=== PATIENT | female | born 1965 | race Caucasian/White ===

== ENCOUNTER 2017-04-11 14:29 | Observation (INO) ==
--- NOTE | 2017-04-11 14:58 | Emergency Department Note ---
Disposition Clinical Impression: Transient cerebral ischemia Qualifiers: Transient cerebral ischemia type: unspecified Qualified Code(s): G45.9 - Transient cerebral ischemic attack, unspecified Disposition: Admitted As Inpatient Condition: Good Time of Disposition: 17:07 Neuro HPI - General Chief Complaint: ED Neuro Symptoms/Deficit Stated Complaint: Nuero symptoms Time Seen by Provider: 04/11/17 14:48 Source: patient, family Mode of arrival: EMS Limitations: no limitations Nursing Notes Reviewed: Yes Vital Signs Reviewed: Yes - History of Present Illness HPI Narrative: Patient presents to the ED if the chief complaint multiple mental status and expressive aphasia. Family reports that over the last several weeks. The patient has been having issues getting her words out. States that she takes muscle relaxers and at times will just drift off in the middle of sentences. States that today off and on. She has been having issues more so than usual to where she will be speaking and then start interjecting words that make no sense and have no place and her normal conversation. There is no weakness or slurred speech. Family states she is just acting strange. Patient reports that she knows what she wants to say but just oozing coming out correctly. He is been going on all day and is also been going on for last several weeks. No fever, headache, changes in vision, abdominal pain, nausea, vomiting, diarrhea, chest pain or shortness of breath. - Related Data Home Medications: Home Medications Medication Instructions Recorded Confirmed Cholecalciferol (D-3) [Vitamin D] 1,000 unit PO DAILY 03/13/17 04/11/17 Cyanocobalamin (B-12) [Vitamin B12] 1,000 mcg PO DAILY 03/13/17 04/11/17 DULoxetine [Cymbalta] 30 mg PO DAILY 03/13/17 04/11/17 Loratadine [Claritin] 10 mg PO DAILY 03/13/17 04/11/17 Multivit-Min/Iron/Folic/Lutein 1 each PO DAILY 03/13/17 04/11/17 [Centrum Silver Women Tablet] Omeprazole [PriLOSEC] 20 mg PO BIDAC 03/13/17 04/11/17 Pregabalin [Lyrica] 100 mg PO TID 03/13/17 04/11/17 Spironolactone [Aldactone] 50 mg PO DAILY 03/13/17 04/11/17 Tizanidine HCl [Zanaflex] 4 mg PO QID PRN 03/13/17 04/11/17 Metoprolol XL (24 HR) Succ [Toprol 50 mg PO DAILY 04/11/17 04/11/17 XL] Oxycodone HCl/Acetaminophen 1 each PO Q6H PRN 04/11/17 04/11/17 [Percocet 7.5-325 mg Tablet] Promethazine HCl 50 mg PO Q8H PRN 04/11/17 04/11/17 Trazodone HCl 150 mg PO HS 04/11/17 04/11/17 clonazePAM [Clonazepam] 1 mg PO QID PRN 04/11/17 04/11/17 Allergies/Adverse Reactions: Allergies Allergy/AdvReac Type Severity Reaction Status Date / Time nalbuphine [From Nubain] AdvReac Severe Anxiety Verified 03/13/17 13:58 guaifenesin [From Mucinex] AdvReac Headache Verified 03/13/17 13:58 All systems ED: reviewed and negative except as stated. Constitutional: Denies: fever Eyes: Denies: vision change Cardiovascular: Denies: chest pain Respiratory: Denies: dyspnea Gastrointestinal: Denies: abdominal pain, nausea, vomiting Musculoskeletal: Denies: neck pain Neurological: Reports: confusion. Denies: headache Endocrine: Reports: fatigue Past Medical History - Past Medical History Attestation: Yes The following information was validated with the patient. Source: patient Medical history: Reports: hypertension Psychiatric history: Reports: no psych history - Social History Smoking Status: Former smoker Smokeless Tobacco Status: No Alcohol use: Reports: none Drug use: Reports: none Physical Exam - General Limitations: no limitations General appearance: alert, in no apparent distress - Head Head exam: atraumatic, normocephalic, normal inspection - Eye Eye exam: Present: normal appearance, PERRL, EOMI - ENT ENT exam: normal exam, normal oropharynx, mucous membranes moist - Neck Neck exam: Present: normal inspection, full ROM, trachea midline - Chest Chest inspection: Present: normal inspection, symmetric chest wall rise - Respiratory Respiratory exam: Present: normal lung sounds bilaterally - Cardiovascular Cardiovascular exam: Present: regular rate, normal rhythm, normal heart sounds - Abdominal Exam Abdominal exam: Present: soft, Non-Tender, other (obese). Absent: tenderness, distention, guarding, rebound, rigidity - Extremities Exam Extremities exam: Present: normal inspection, full ROM. Absent: tenderness, pedal edema - Expanded Lower Extremity Exam Hip/Pelvis exam: Present: pelvis stable - Back Exam Back exam: Present: normal inspection, full ROM. Absent: tenderness - Neurological Exam Neurological exam: Present: alert, oriented X3, CN II-XII intact, normal gait - Expanded Neurological Exam Patient oriented to: Present: person, place, time Speech: Present: fluid speech (does slur some words) Cranial nerves: EOM function (II, III, IV, ): Normal, facial sensation (V): Normal, facial palsy (VII): Normal, spinal accessory function (XI): Normal, tongue deviation (XII): Normal Cerebellar function: finger to nose: Normal Cerebellar function: normal gait Motor strength - LUE: 5/5 Motor strength - RUE: 5/5 Motor strength - LLE: 5/5 Motor strength - RLE: 5/5 Upper motor neuron exam: yan neglect: Absent bilaterally, pronator drift: Absent bilaterally Sensory exam upper extremity: light touch: Normal Sensory exam lower extremity: light touch: Normal Coma Scale Eye Opening: Spontaneous Coma Scale Motor Response: Obeys Commands Coma Scale Verbal Response: Oriented Coma Scale Total: 15 - Psychiatric Psychiatric exam: Present: other (Odd Affect, seems to be over medicated) - Skin Skin exam: Present: warm, dry, intact, normal color Course Course Narrative: Patient presenting with difficulty with speech for the last several weeks, worse today. Patient does seem to be overmedicated. Stroke alert. Not called due to symptoms occurring over several weeks. Will workup and likely admit. - Consultations Consultation #1: spoke with the on-call neurologist, Dr. Massey, recommended admission for MRI. Patient aware and agreeable. NIH remains 0. Vital Signs Temperature 98.0 F 04/11/17 14:35 Pulse Rate 82 04/11/17 14:35 Respiratory Rate 16 04/11/17 14:35 Blood Pressure 145/90 04/11/17 14:35 O2 Sat by Pulse Oximetry 92 04/11/17 14:35 Temperature 98.0 F 04/11/17 14:35 Pulse Rate 84 04/11/17 16:34 Respiratory Rate 14 04/11/17 16:34 Blood Pressure 124/73 04/11/17 16:34 O2 Sat by Pulse Oximetry 91 04/11/17 16:34 Oxygen Delivery Oxygen Delivery Room Air Neuro Symptoms/Deficit - Medical Records Medical records reviewed: Yes I reviewed the patient's medical records. - Lab Data Lab results reviewed: Yes I reviewed the patient's lab results. Result diagrams: 04/11/17 15:31 04/11/17 15:31 Lab Results 04/11/17 04/11/17 04/11/17 Range/Units 14:32 15:17 15:17 WBC (4.3-11.1) K/mcL RBC (3.82-4.97) M/mcL Hgb (11.5-15.4) g/dL Hct (35.3-44.9) % MCV (83.0-100.0) fL MCH (28.0-33.3) pg MCHC (31.6-35.5) g/dL RDW (11.5-14.5) % Plt Count (140-400) K/mcL MPV (9.4-12.4) fL Immature Gran % (0-4) % Seg Neutrophils % % Lymphocytes % % Monocytes % % Eosinophils % % Basophils % % Neutrophils # (1.6-8.9) K/mcL Lymphocytes # (0.6-4.6) K/mcL Monocytes # (0.0-1.3) K/mcL Eosinophils # (0.0-0.6) K/mcL Basophils # (0.0-0.2) K/mcL Immature Plt Fraction (1.1-6.1) % PT (9.4-12.1) Seconds INR APTT (26.0-36.0) Seconds Sodium (136-145) mEq/L Potassium (3.5-4.5) mEq/L Chloride (98-109) mEq/L Carbon Dioxide (19-29) mEq/L BUN (7-20) mg/dL Creatinine (0.57-1.11) mg/dL Est GFR ( Amer) (> 60) Est GFR (Non-Af Amer) (> 60) BUN/Creatinine Ratio (6-26) Glucose (70-99) mg/dL POC Glucose 315 H (58-89) Calculated Osmolality (280-300) Calcium (8.6-10.8) mg/dL Troponin I (0-0.03) ng/mL Urine Color Yellow (Yellow) Urine Clarity Clear (Clear) Urine pH 6.0 (5.0-8.0) pH Units Ur Specific [place] 1.020 (1.010-1.025) Urine Protein Negative (Neg-Trace) mg/dL Urine Glucose (UA) >=1000 H (Normal) mg/dL Urine Ketones Negative (Negative) mg/dL Urine Blood Negative (Negative) Urine Nitrite Negative (Negative) Urine Bilirubin Negative (Negative) Urine Urobilinogen Normal (Normal) mg/dL Ur Leukocyte Esterase Negative (Negative) Ur Culture Indicated? NO (NO) Urine Opiates Screen Positive H (Xcenmm=913) ng/mL Ur Barbiturates Screen Negative (Wqxhxm=445) ng/mL Ur Phencyclidine Scrn Negative (Cutoff=25) ng/mL Ur Amphetamines Screen Negative (Nmjriz=6575) ng/mL U Benzodiazepines Scrn Negative (Gntkgm=086) ng/mL Urine Cocaine Screen Negative (Cutoff= 300) ng/mL U Marijuana (THC) Screen Negative (Cutoff = 50) ng/mL 04/11/17 04/11/17 04/11/17 Range/Units 15:31 15:31 15:31 WBC 3.6 L (4.3-11.1) K/mcL RBC 4.19 (3.82-4.97) M/mcL Hgb 10.0 L (11.5-15.4) g/dL Hct 33.4 L (35.3-44.9) % MCV 79.7 L (83.0-100.0) fL MCH 23.9 L (28.0-33.3) pg MCHC 29.9 L (31.6-35.5) g/dL RDW 18.3 H (11.5-14.5) % Plt Count 95 L (140-400) K/mcL MPV 9.4 (9.4-12.4) fL Immature Gran % 0.6 (0-4) % Seg Neutrophils % 35.9 % Lymphocytes % 51.1 % Monocytes % 11.3 % Eosinophils % 0.8 % Basophils % 0.3 % Neutrophils # 1.3 L (1.6-8.9) K/mcL Lymphocytes # 1.8 (0.6-4.6) K/mcL Monocytes # 0.4 (0.0-1.3) K/mcL Eosinophils # 0.0 (0.0-0.6) K/mcL Basophils # 0.0 (0.0-0.2) K/mcL Immature Plt Fraction 3.7 (1.1-6.1) % PT 11.4 (9.4-12.1) Seconds INR 1.1 APTT 37.3 H (26.0-36.0) Seconds Sodium 136 (136-145) mEq/L Potassium 4.1 (3.5-4.5) mEq/L Chloride 101 (98-109) mEq/L Carbon Dioxide 28 (19-29) mEq/L BUN 9 (7-20) mg/dL Creatinine 0.93 (0.57-1.11) mg/dL Est GFR ( Amer) > 60 (> 60) Est GFR (Non-Af Amer) > 60 (> 60) BUN/Creatinine Ratio 10 (6-26) Glucose 294 H (70-99) mg/dL POC Glucose (58-89) Calculated Osmolality 292 (280-300) Calcium 9.5 (8.6-10.8) mg/dL Troponin I (0-0.03) ng/mL Urine Color (Yellow) Urine Clarity (Clear) Urine pH (5.0-8.0) pH Units Ur Specific [place] (1.010-1.025) Urine Protein (Neg-Trace) mg/dL Urine Glucose (UA) (Normal) mg/dL Urine Ketones (Negative) mg/dL Urine Blood (Negative) Urine Nitrite (Negative) Urine Bilirubin (Negative) Urine Urobilinogen (Normal) mg/dL Ur Leukocyte Esterase (Negative) Ur Culture Indicated? (NO) Urine Opiates Screen (Zudvln=963) ng/mL Ur Barbiturates Screen (Cawxfw=486) ng/mL Ur Phencyclidine Scrn (Cutoff=25) ng/mL Ur Amphetamines Screen (Qxnuii=4641) ng/mL U Benzodiazepines Scrn (Shvdob=991) ng/mL Urine Cocaine Screen (Cutoff= 300) ng/mL U Marijuana (THC) Screen (Cutoff = 50) ng/mL 04/11/17 Range/Units 15:31 WBC (4.3-11.1) K/mcL RBC (3.82-4.97) M/mcL Hgb (11.5-15.4) g/dL Hct (35.3-44.9) % MCV (83.0-100.0) fL MCH (28.0-33.3) pg MCHC (31.6-35.5) g/dL RDW (11.5-14.5) % Plt Count (140-400) K/mcL MPV (9.4-12.4) fL Immature Gran % (0-4) % Seg Neutrophils % % Lymphocytes % % Monocytes % % Eosinophils % % Basophils % % Neutrophils # (1.6-8.9) K/mcL Lymphocytes # (0.6-4.6) K/mcL Monocytes # (0.0-1.3) K/mcL Eosinophils # (0.0-0.6) K/mcL Basophils # (0.0-0.2) K/mcL Immature Plt Fraction (1.1-6.1) % PT (9.4-12.1) Seconds INR APTT (26.0-36.0) Seconds Sodium (136-145) mEq/L Potassium (3.5-4.5) mEq/L Chloride (98-109) mEq/L Carbon Dioxide (19-29) mEq/L BUN (7-20) mg/dL Creatinine (0.57-1.11) mg/dL Est GFR ( Amer) (> 60) Est GFR (Non-Af Amer) (> 60) BUN/Creatinine Ratio (6-26) Glucose (70-99) mg/dL POC Glucose (58-89) Calculated Osmolality (280-300) Calcium (8.6-10.8) mg/dL Troponin I 0.00 (0-0.03) ng/mL Urine Color (Yellow) Urine Clarity (Clear) Urine pH (5.0-8.0) pH Units Ur Specific [place] (1.010-1.025) Urine Protein (Neg-Trace) mg/dL Urine Glucose (UA) (Normal) mg/dL Urine Ketones (Negative) mg/dL Urine Blood (Negative) Urine Nitrite (Negative) Urine Bilirubin (Negative) Urine Urobilinogen (Normal) mg/dL Ur Leukocyte Esterase (Negative) Ur Culture Indicated? (NO) Urine Opiates Screen (Kqnbhv=914) ng/mL Ur Barbiturates Screen (Exthbu=620) ng/mL Ur Phencyclidine Scrn (Cutoff=25) ng/mL Ur Amphetamines Screen (Parnwl=4731) ng/mL U Benzodiazepines Scrn (Dcrgvs=011) ng/mL Urine Cocaine Screen (Cutoff= 300) ng/mL U Marijuana (THC) Screen (Cutoff = 50) ng/mL - Radiology Data Radiology results reviewed: Yes I reviewed the patient's radiology results. - EKG Data EKG attestation: Yes I reviewed and interpreted this EKG. EKG results narrative: Sinus rhythm, rate 82, NH interval 157, QRS 94, QTC 399, left axis deviation, no acute ischemic changes NIH Stroke Scale - Level of Consciousness LOC: Alert - LOC Questions LOC Questions: Answers both correctly - LOC Commands LOC Commands: Performs both correctly - Best Gaze Best Gaze: Normal - Visual Visual: No visual loss - Facial Palsy Facial Palsy: Normal - Motor Arms Motor Arm-Left: No drift for 10 seconds Motor Arm-Right: No drift for 10 seconds - Motor Legs Motor Leg-Left: No drift for 5 seconds Motor Leg-Right: No drift for 5 seconds - Limb Ataxia Limb Ataxia: Normal, No Ataxia - Sensory Sensory: Normal - Best Language Best Language: No aphasia - Dysarthria Dysarthria: Normal - Extinction and Inattention Extinction and Inattention: Normal - NIHSS Total Score NIHSS Total Score: 0 TPA Checklist - LKW: 3-4.5 hrs Add. Warnings/Precautions Patient/family understanding: The patient/family members have been counseled and understood the risk, benefit , and alternatives of treatment. S.B.A.R. - S.B.A.RMorgan Situation: Demographics, MOA Background: Presenting Complaint, Relevant PMH, Meds, & Allergies Assessment: Vital Signs, Course and respsone to treatment, Exam Concerns, Patient/Family Expectation, Pertinant Lab Results, Outstanding Labs Recommendation: Barrier(s) to disposition, Recommendation based on pending studies, treatments, or consults S.B.A.R. Report Given to: vivek MartinezBMorganAKunal Repor Time: 17:10 Attestation Statement - Attestation Attestation: I examined this patient and my medical decision-making was reviewed with the Resident Physician. I agree with the documented findings, disposition and treatment plan as described except to the extent set forth below. Patient presents to the ED with a chief complaint of difficulty speaking and forming sentences. Onset 2 weeks ago but family states they got worse an hour ago. They did note that she taken 2 pain pills and a muscle relaxer earlier today. Patient denies any numbness or weakness. On examination patient awake alert and appropriate. She answers all questions appropriately. Her NIH scale here is 0. Plan. The patient seems to have altered mental status is been going on for couple weeks. Altered mental status workup.
[2017-04-11 15:26] LABS: Bilirubin,Urine Negative (Negative); Blood,Urine Negative (Negative); Clarity,Urine Clear (Clear); Color,Urine Yellow (Yellow); Glucose,Urine (UA) >=1000 mg/dL (Normal); Ketones,Urine Negative (Negative); Leukocyte Esterase,Urine Negative (Negative); Nitrite,Urine Negative (Negative); Protein,Urine Negative (Neg-Trace); Urobilinogen,Urine Normal (Normal)
[2017-04-11 15:41] LABS: Amphetamine Screen,Urine Negative ng/mL (Cutoff=1000); Barbiturate Screen,Urine Negative ng/mL (Cutoff=200); Benzodiazepines Screen,Urine Negative ng/mL (Cutoff=200); Cannabinoid Screen,Urine Negative ng/mL (Cutoff = 50); Cocaine Screen,Urine Negative ng/mL (Cutoff= 300); Opiate Screen,Urine Positive ng/mL (Cutoff=300); Phencyclidine Screen,Urine Negative ng/mL (Cutoff=25)
[2017-04-11 15:46] LABS: Basophils % 0.3 %; Monocytes % 11.3 %
[2017-04-11 15:48] LABS: Eosinophils % 0.8 %; Hematocrit 33.4 % (35.3-44.9); Immature Granulocytes % 0.6 % (0-4); Immature Platelets 3.7 % (1.1-6.1); Lymphocytes % 51.1 %; Mean Corpuscular HGB Conc 29.9 g/dL (31.6-35.5); Mean Corpuscular Hemoglobin 23.9 pg (28.0-33.3); Mean Corpuscular Volume 79.7 fL (83.0-100.0); Mean Platelet Volume 9.4 fL (9.4-12.4); Monocytes # 0.4 K/mcL (0.0-1.3); Neutrophils # 1.3 K/mcL (1.6-8.9); Platelet Count 95 K/mcL (140-400); Red Blood Count 4.19 M/mcL (3.82-4.97); Red Cell Distribution Width 18.3 % (11.5-14.5); Segmented Neutrophils % 35.9 %
[2017-04-11 15:50] LABS: INR 1.1; Prothrombin Time 11.4 Seconds (9.4-12.1)
[2017-04-11 15:52] LABS: Activated Partial Thrombo Time 37.3 Seconds (26.0-36.0); Lymphocytes # 1.8 K/mcL (0.6-4.6)
[2017-04-11] MEDS ORDERED: Aspirin 325 MG TABLET PO ONE (15:56)
[2017-04-11 15:58] LABS: BUN/Creatinine Ratio 10 (6-26); Blood Urea Nitrogen 9 mg/dL (7-20); Calcium 9.5 mg/dL (8.6-10.8); Carbon Dioxide 28 mEq/L (19-29); Chloride 101 mEq/L (98-109); Glucose 294 mg/dL (70-99); Osmolality,Calculated 292 (280-300); Potassium 4.1 mEq/L (3.5-4.5); Sodium 136 mEq/L (136-145); eGFR For African Americans > 60 (> 60); eGFR For Non-African Americans > 60 (> 60)
--- NOTE | 2017-04-11 19:25 | Internal Med History&Physical ---
Date of Encounter: 04/11/17 Time of Encounter: 19:25 Assessment and Plan (1) Neurologic disorder Current visit: Yes Status: Acute Patient comes in with a three-week history of poor sleep, snoring, confusion in the morning, lethargy throughout the day, word finding difficulties, she has symptoms suggestive of a sleep disorder likely related to a combination of restless leg syndrome and obstructive sleep apnea, MRI of the brain was unremarkable for an infarct, this is unlikely to be related to TIA due to the long duration, she will benefit from an outpatient sleep study, meanwhile neurology has been consulted to weigh in (2) HTN (hypertension) Current visit: Yes Status: Chronic Continue home antihypertensives with BP monitoring Qualifiers: Hypertension type: essential hypertension Qualified Code(s): I10 - Essential (primary) hypertension (3) JANEY (obstructive sleep apnea) Current visit: Yes Status: Chronic Suspected based on her symptoms, will need out patient sleep study Internal Medicine - H&P: HPI Chief complaint: AMS Admitted From: Emergency Dept Plans for Post Hospital Care: Home History of present illness: Ms. Ann is a 51 year old morbidly obese female who was brought in by family today with complaints of word finding difficulty, intermittent confusion. Patient reports that she was last well and at her baseline about 3 weeks ago. Since then she has had intermittent periods of confusion, word finding difficulty, interjecting inappropriate words during communication, and at times losing her train of thought mid sentence when communicating with people. She denies any prior history of this complaint, no family history of seizures noted. at bedside reports that patient does not sleep well at night with episodes of snoring, turning in bed and restless leg at night. Patient herself reports that she wakes up in the morning slightly confused, with a sense of unrefreshing sleep, and goes about her day with slow mentation. Although she has never had naps in the past she has realized that in the past 3 weeks she has been napping most of the time during the day. She denies any prior diagnosis of sleep apnea or sleep disorder. She has not experienced any narcolepsy episodes, no urinary or bowel incontinence. She denies any recent headaches but admits to migraine headache history, she has not noticed any paresthesias, loss of function, facial weakness, or any difficulty with ambulation. No prior stroke to her knowledge. Upon presentation to the ER of [facility], she had no neuro deficits on exam, MRI of the brain was unremarkable for an infarct. Past medical history hypercholesterolemia anemia hypertension fibromyalgia stomach ulcers anxiety morbid obesity bilateral knee arthritis lumbar degenerative disc disease left hip osteoarthritis acute pharyngitis migraine headaches rheumatoid arthritis chronic lymphadenitis Past surgical history sectionx2 tonsillectomy cholecystectomy gastric bypass total hysterectomy ganglion cyst removal on the left wrist kidney stones with stent placement trigger thumb release skin excision left ulnar nerve release carpal tunnel release Social history she reports that she is and never smoker, she is , has 2 kids, denies alcohol use or drug use, 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 Family history Father is , he had esophageal cancer, hypertension, skin cancer, mother has Parkinson's dementia, skin cancer, Past Med Surg Social Fam HX - Past Medical History Medical history: hypertension Psychiatric history: no psych history - Social History Smoking Status: Former smoker Smokeless Tobacco Status: No Alcohol use: none Drug use: none - Family History Father Adopted: [place]: [place] Family Member Ethnicity: Non- Living Status: Age at : 50 Cause of : ESPHAGEAL CANCER Hx Family Cardiac Disorders: Yes (HTN) Hx Family Respiratory Disorders: No Hx Family Cancer: Yes Hx Family GI Disorders: No Hx Family Genitourinary Disorders: No Hx Family Endocrine Disorder: No Hx Family Musculoskeletal Disorders: No Hx Family Neuromuscular Disorders: No Hx Family Neurologic Disorders: No Hx Family HEENT Disorders: No Hx Family Autoimmune Disorders: No Hx Family Reproductive Disorders: No Hx Family Psychosocial Disorders: No Hx Family Medical Disorders: No Internal Medicine - H&P: Meds Cholecalciferol (D-3) [Vitamin D] 1,000 unit PO DAILY 03/13/17 [History] Cyanocobalamin (B-12) [Vitamin B12] 1,000 mcg PO DAILY 03/13/17 [History] DULoxetine [Cymbalta] 30 mg PO DAILY 03/13/17 [History] Loratadine [Claritin] 10 mg PO DAILY 03/13/17 [History] Multivit-Min/Iron/Folic/Lutein [Centrum Silver Women Tablet] 1 each PO DAILY [History] Omeprazole [PriLOSEC] 20 mg PO BIDAC 03/13/17 [History] Pregabalin [Lyrica] 100 mg PO TID 03/13/17 [History] Spironolactone [Aldactone] 50 mg PO DAILY 03/13/17 [History] Tizanidine HCl [Zanaflex] 4 mg PO QID PRN 03/13/17 [History] Metoprolol XL (24 HR) Succ [Toprol XL] 50 mg PO DAILY 04/11/17 [History] Oxycodone HCl/Acetaminophen [Percocet 7.5-325 mg Tablet] 1 each PO Q6H PRN 04/11 [History] Promethazine HCl 50 mg PO Q8H PRN 04/11/17 [History] Trazodone HCl 150 mg PO HS 04/11/17 [History] clonazePAM [Clonazepam] 1 mg PO QID PRN 04/11/17 [History] 3 Allergy/AdvReac Type Severity Reaction Status Date / Time nalbuphine [From Nubain] AdvReac Severe Anxiety Verified 03/13/17 13:58 guaifenesin [From Mucinex] AdvReac Headache Verified 03/13/17 13:58 All Systems PM: A 10-system review of systems was performed and is negative for pertinent findings except as documented above in the HPI. - Constitutional Vitals: Temp Pulse Resp BP Pulse Ox 98.0 F 79 16 116/77 93 04/11/17 19:17 04/11/17 19:17 04/11/17 19:17 04/11/17 19:17 04/11/17 19:17 GENERAL: Adult female, appears morbidly obese, lying in bed, Alert, not in obvious pain or distress HEENT: NC/AT, EOMI, PERRLA, anicteric sclera, normal conjunctiva, thick short neck, clear nares, moist mucous membranes, RESP: Lungs are clear to auscultation bilaterally, with good AE, no crackles or wheeze CARDIO: Normal heart sounds with RRR, no murmurs, no JVD, no ankle edema GI: Soft, full, no tenderness, no organomegaly felt, normal bowel sounds heard MUSCULOSKELETAL: Grossly normal movements bilaterally, no deformities noted, NEUROLOGIC: CN 2-12 intact grossly. No gross motor/sensory deficit appreciated, PSYCHIATRY: AAO x 3. Mood is fair SKIN: no skin rash or ulcers noted Internal Med - H&P Results - Labs CBC & Chem 7: 04/11/17 15:31 04/12/17 05:20 - Diagnostic Studies MRI - head Status: image reviewed by me Chest x-ray Status: image reviewed by me
[2017-04-11] MEDS ORDERED: Naloxone 0.4 MG/ML INJ IVP PRN (20:03)
[2017-04-11] MEDS ORDERED: tiZANidine 4 MG TABLET PO PRN (20:05)
[2017-04-11] MEDS ORDERED: clonazePAM 1 MG TABLET PO PRN (20:05)
[2017-04-11] MEDS ORDERED: Pregabalin 50 MG CAPSULE PO SCH (21:00)
[2017-04-11] MEDS ORDERED: traZODone 50 MG TABLET PO SCH (21:00)
[2017-04-11] MEDS: Ondansetron 4 MG/2 ML VIAL IVP PRN (21:47)
[2017-04-11] MEDS: *HR* OxyCODONE/APAP 7.5/325 TABLET PO PRN (21:47)
[2017-04-12 05:47] LABS: BUN/Creatinine Ratio 14 (6-26); Blood Urea Nitrogen 11 mg/dL (7-20); Calcium 8.9 mg/dL (8.6-10.8); Carbon Dioxide 31 mEq/L (19-29); Chloride 101 mEq/L (98-109); Glucose 305 mg/dL (70-99); Magnesium 1.6 mg/dL (1.6-2.6); Osmolality,Calculated 295 (280-300); Potassium 4.1 mEq/L (3.5-4.5); Sodium 137 mEq/L (136-145); eGFR For African Americans > 60 (> 60); eGFR For Non-African Americans > 60 (> 60)
[2017-04-12] MEDS: *HR* OxyCODONE/APAP 7.5/325 TABLET PO PRN ×2 (05:51→12:05)
[2017-04-12] MEDS ORDERED: *HR* Heparin 5,000 UNIT/ML VIAL SQ SCH (06:45)
[2017-04-12] MEDS ORDERED: Multivit/Ca/Min/Fe/FA 1 TAB TABLET PO SCH (09:00)
[2017-04-12] MEDS ORDERED: Cholecalciferol (D-3) 1,000 UNIT TABLET PO SCH (09:00)
[2017-04-12] MEDS ORDERED: Metoprolol XL (24 HR) Succ 50 MG TAB.ER.24H PO SCH (09:00)
[2017-04-12] MEDS ORDERED: Pregabalin 50 MG CAPSULE PO SCH (09:00)
[2017-04-12] MEDS ORDERED: Loratadine 10 MG TABLET PO SCH (09:00)
[2017-04-12] MEDS ORDERED: Cyanocobalamin (B-12) 1,000 MCG TABLET PO SCH (09:00)
[2017-04-12 11:41] VITALS: BP 109/74
[2017-04-12] MEDS: Ondansetron 4 MG/2 ML VIAL IVP PRN (12:02)
--- NOTE | 2017-04-12 12:37 | Neurology - Consult Note ---
Date of Encounter: 04/12/17 Time of Encounter: 10:34 Assessment and Plan (1) Episodic confusion Current Visit: Yes Status: Acute This patient who denies any history of stroke or any history of seizures noted to have these episodic confusion and some intermittent difficulty with word finding the negative MRI of the brain and normal neurological examination. At this time no focal findings on her examination certainly TIA is a possibility but the description does not sound like a typical TIA. She is on baby aspirin suggested to continue. Other possible etiologies episodic spells could be complex partial seizures or perhaps simple partial seizures that may be causing these unusual symptoms. As she is back to normal routine EEG probably not going to be helpful as her symptoms are going on for the past few weeks and having it frequently to be reasonable to see look for any interictal abnormalities on an ambulatory EEG. She would probably benefit from 48 hours ambulatory EEG as an outpatient as she is already known to our practice suggested to follow-up after the discharge and will arrange for admitted to EEG. No evidence of any acute stroke on MRI of the brain suggested that he check for any underlying metabolic and infectious etiology to make sure there is no infection or metabolic disturbance causing her these episodic confusion. If patient's remained stable she could be discharged with follow-up in the office (2) Word finding difficulty Current Visit: Yes Status: Acute History of Present Illness HPI: Ms. Ann is a 51 year old female knows to be from previous visits, was brought in by family today with complaints of word finding difficulty, and intermittent confusion for the past 3 weeks ago. Since then she has had intermittent periods of confusion, word finding difficulty, interjecting inappropriate words during communication, and at times losing her train of thought mid sentence. pt not sleeping well and has episodes of snoring, turning in bed and restless leg at night. She denies any recent headaches but admits to migraine headache history, she denies any focal motor weakness or any paresthesias, she had no neuro deficits on exam today had MRI of brain earlier and noted to be normal. Past Med Surg Social Fam HX - Past Medical History Medical history: hypertension Psychiatric history: no psych history - Past Surgical History Surgical History: cholecystectomy, hysterectomy - Social History Smoking Status: Former smoker Smokeless Tobacco Status: No Alcohol use: none Drug use: none - Family History Father Adopted: [place]: [place] Family Member Ethnicity: Non- Living Status: Age at : 49 Cause of : ESPHAGEAL CANCER Hx Family Cardiac Disorders: Yes (HTN) Hx Family Respiratory Disorders: No Hx Family Cancer: Yes Hx Family GI Disorders: No Hx Family Genitourinary Disorders: No Hx Family Endocrine Disorder: No Hx Family Musculoskeletal Disorders: No Hx Family Neuromuscular Disorders: No Hx Family Neurologic Disorders: No Hx Family HEENT Disorders: No Hx Family Autoimmune Disorders: No Hx Family Reproductive Disorders: No Hx Family Psychosocial Disorders: No Hx Family Medical Disorders: No Medications and Allergies Cholecalciferol (D-3) [Vitamin D] 1,000 unit PO DAILY 03/13/17 [History] Cyanocobalamin (B-12) [Vitamin B12] 1,000 mcg PO DAILY 03/13/17 [History] DULoxetine [Cymbalta] 30 mg PO DAILY 03/13/17 [History] Loratadine [Claritin] 10 mg PO DAILY 03/13/17 [History] Multivit-Min/Iron/Folic/Lutein [Centrum Silver Women Tablet] 1 each PO DAILY [History] Omeprazole [PriLOSEC] 20 mg PO BIDAC 03/13/17 [History] Pregabalin [Lyrica] 100 mg PO TID 03/13/17 [History] Spironolactone [Aldactone] 50 mg PO DAILY 03/13/17 [History] Tizanidine HCl [Zanaflex] 4 mg PO QID PRN 03/13/17 [History] Metoprolol XL (24 HR) Succ [Toprol XL] 50 mg PO DAILY 04/11/17 [History] Oxycodone HCl/Acetaminophen [Percocet 7.5-325 mg Tablet] 1 each PO Q6H PRN 04/11 [History] Promethazine HCl 50 mg PO Q8H PRN 04/11/17 [History] Trazodone HCl 150 mg PO HS 04/11/17 [History] clonazePAM [Clonazepam] 1 mg PO QID PRN 04/11/17 [History] 3 Allergy/AdvReac Type Severity Reaction Status Date / Time nalbuphine [From Nubain] AdvReac Severe Anxiety Verified 03/13/17 13:58 guaifenesin [From Mucinex] AdvReac Headache Verified 03/13/17 13:58 All Systems: A 10-system review of systems was performed and is negative for pertinent findings except as documented above in the HPI. Physical Examination - Vital Signs Vital Signs: Initial Vital Signs Temp Pulse Resp BP Pulse Ox 98.0 F 82 16 145/90 92 04/11/17 14:35 04/11/17 14:35 04/11/17 14:35 04/11/17 14:35 04/11/17 14:35 - Constitutional General appearance: comfortable - Neurologic Detailed motor examination: full strength in all major muscle groups Motor examination - right side: 5/5: deltoids, biceps, triceps, wrist flexion, wrist extension, website project manager, hip flexors, tibialis Anterior, quadriceps, toe extension (EHL), plantarflexion Motor examination - left side: 5/5: deltoids, biceps, triceps, wrist flexion, wrist extension, hip flexors, website project manager, quadriceps, tibialis Anterior, toe extension (EHL), plantarflexion Detailed sensory examination: intact Reflexes: Biceps: 1+, Triceps: 1+, Brachioradialis: 1+, Patella: 1+, Achilles: 1 + Mental Status Examination: awake, alert, oriented to person, oriented to place, oriented to time, follows commands appropriately, answers questions appropriately, no agnosia, no aphasia, no aproxia Cranial nerve examination: PERRL, EOMI, visual thapa intact, corneal reflexes brisk symmetrically, sensory to face intact, mastication intact, no facial asymmetry is present, no dysarthria, hearing is intact symmetrically, soft palate elevates bilaterally upon phonation, gag reflex intact, flexes SCM and trapezius muscles symmetrically with full power, tongue protrudes midline, no atrophy or facial fasiculations present Cerebellar examination: no dysmetria, performs finger to nose and heel to sawyer symmetrically without ataxia, no difficulty with rapid alternating movements Results - Laboratory Findings CBC and BMP: 04/11/17 15:31 04/12/17 05:20 Abnormal lab findings: Abnormal lab results WBC 3.6 K/mcL (4.3-11.1) L 04/11/17 15:31 Hgb 10.0 g/dL (11.5-15.4) L 04/11/17 15:31 Hct 33.4 % (35.3-44.9) L 04/11/17 15:31 MCV 79.7 fL (83.0-100.0) L 04/11/17 15:31 MCH 23.9 pg (28.0-33.3) L 04/11/17 15:31 MCHC 29.9 g/dL (31.6-35.5) L 04/11/17 15:31 RDW 18.3 % (11.5-14.5) H 04/11/17 15:31 Plt Count 95 K/mcL (140-400) L 04/11/17 15:31 Neutrophils # 1.3 K/mcL (1.6-8.9) L 04/11/17 15:31 APTT 37.3 Seconds (26.0-36.0) H 04/11/17 15:31 Carbon Dioxide 31 mEq/L (19-29) H 04/12/17 05:20 Glucose 305 mg/dL (70-99) H 04/12/17 05:20 POC Glucose 315 (58-89) H 04/11/17 14:32 Urine Glucose (UA) >=1000 mg/dL (Normal) H 04/11/17 15:17 Urine Opiates Screen Positive ng/mL ([place]=[id number]) H 04/11/17 15:17 - Diagnostic Findings Additional findings: MRI of the brain as well as MRA of the head was reported as negative no evidence of any acute infarction Consult Discharge Plan - Plan Referrals: Maria Dolores Whaley CNP [Primary Care Provider] -
[2017-04-12 12:49] LABS: Hemoglobin A1C 9.5 %
--- NOTE | 2017-04-12 13:11 | Discharge Summary ---
Date of Encounter: 04/12/17 Time of Encounter: 11:30 - Discharge Diagnosis (1) Neurologic disorder Priority: Primary Status: Acute Comments: Patient comes in with a three-week history of poor sleep, snoring, confusion in the morning, lethargy throughout the day, word finding difficulties, she has symptoms suggestive of a sleep disorder likely related to a combination of restless leg syndrome and obstructive sleep apnea, MRI of the brain was unremarkable for an infarct, this is unlikely to be related to TIA due to the long duration, she will benefit from an outpatient sleep study. Pt reports hypersomnolence and states that she never feels rested and that she dozes off at inappropriate times, such as when family is speaking to her. Likely causes include consistently elevated blood glucose and new diabetes, narcolepsy, or sleep apnea. Pt states that pt snores constantly, but he has sleep apnea, as well, and wears a bipap and does not hear her all night. Neurology has seen her and have signed off. They recommend a 48 hour EEG as an outpatient. Also suggest that etiology could be partial seizures. Chest xray is negative for acute process, urine is negative for infection. Pt has no leukocytosis, tachcycardia or fever. She is normotensive. Pt will need to follow up with PCP and neuro on an outpatient basis for further testing and evaluation. Chest X-Ray 04/11/17 14:48 IMPRESSION: No evidence of acute disease. D/ / Bharath Garvey MD / Bharath Garvey MD Interpreting Provider: Bharath Garvey MD Head CT 04/11/17 14:49 IMPRESSION: Developing multifocal low-density in the periventricular and subcortical white matter bilaterally. Developing small-vessel ischemic changes are favored. A subtle superimposed recent ischemic event would be difficult to exclude without MRI. D/ / Marcelino Bustillos / Marcelino Bustillos Interpreting Provider: Marcelino Bustillos Brain MRI 04/11/17 16:54 IMPRESSION: No acute infarct. No flow limiting stenosis or branch occlusion detected within the head. D/ / Jax Mukherjee MD / Jax Mukherjee MD Interpreting Provider: Jax Mukherjee MD Head MRA 04/11/17 16:54 IMPRESSION: No acute infarct. No flow limiting stenosis or branch occlusion detected within the head. D/ / Jax Mukherjee MD / Jax Mukherjee MD Interpreting Provider: Jax Mukherjee MD (2) Excessive daytime sleepiness Priority: Primary Status: Acute Comments: Pt reports 3 week history of hypersomnolence. Plan as above. (3) Diabetes type 2, uncontrolled Priority: Secondary Status: Acute Comments: A1c 9.5%, pt has been hyperglycemic with accuchecks. This could be contributory for fatigue. Pt will need to follow up with PCP. Metformin 500mg po bid Accuchecks fasting and pc Pt will be sent home with rx for accucheck, strips, lancets, and device. Pt will need counseling from in service educator. Qualifiers: Diabetes mellitus complication status: without complication Diabetes mellitus terminal manager insulin use: without long-term use Qualified Code(s): E11.65 - Type 2 diabetes mellitus with hyperglycemia (4) Thrombocytopenia Priority: Secondary Status: Chronic Comments: Pt states that she is aware and is being worked up at cancer center. She states that she gets iron transfusions for anemia there. (5) HTN (hypertension) Priority: Primary Status: Chronic Comments: Well controlled. Continue home medications. Qualifiers: Hypertension type: essential hypertension Qualified Code(s): I10 - Essential (primary) hypertension (6) JANEY (obstructive sleep apnea) Priority: Secondary Status: Suspected Comments: See PCP for order for sleep study. Plan as above. (7) Word finding difficulty Priority: Secondary Status: Resolved (8) Anemia Priority: Secondary Status: Acute Comments: Pt states that she has been getting iron infusions from cancer center. Continue outpatient follow up and treatment. Qualifiers: Anemia type: iron deficiency Iron deficiency anemia type: unspecified iron deficiency Qualified Code(s): D50.9 - Iron deficiency anemia, unspecified (9) DVT prophylaxis Priority: Secondary Status: Acute Comments: Heparin SQ - Discharge Medications Prescriptions: metFORMIN [Glucophage] 500 mg PO BIDWM #60 tablet Home Medications: Cholecalciferol (D-3) [Vitamin D] 1,000 unit PO DAILY 03/13/17 [History] Cyanocobalamin (B-12) [Vitamin B12] 1,000 mcg PO DAILY 03/13/17 [History] DULoxetine [Cymbalta] 30 mg PO DAILY 03/13/17 [History] Loratadine [Claritin] 10 mg PO DAILY 03/13/17 [History] Multivit-Min/Iron/Folic/Lutein [Centrum Silver Women Tablet] 1 each PO DAILY [History] Omeprazole [PriLOSEC] 20 mg PO BIDAC 03/13/17 [History] Pregabalin [Lyrica] 100 mg PO TID 03/13/17 [History] Spironolactone [Aldactone] 50 mg PO DAILY 03/13/17 [History] Tizanidine HCl [Zanaflex] 4 mg PO QID PRN 03/13/17 [History] Metoprolol XL (24 HR) Succ [Toprol Xl] 50 mg PO DAILY 04/11/17 [History] Oxycodone HCl/Acetaminophen [Percocet 7.5-325 mg Tablet] 1 each PO Q6H PRN 04/11 [History] Promethazine HCl 50 mg PO Q8H PRN 04/11/17 [History] Trazodone HCl 150 mg PO HS 04/11/17 [History] clonazePAM [Clonazepam] 1 mg PO QID PRN 04/11/17 [History] metFORMIN [Glucophage] 500 mg PO BIDWM #60 tablet 04/12/17 [Rx] Allergies/Adverse Reactions: 3 Allergy/AdvReac Type Severity Reaction Status Date / Time nalbuphine [From Nubain] AdvReac Severe Anxiety Verified 03/13/17 13:58 guaifenesin [From Mucinex] AdvReac Headache Verified 03/13/17 13:58 Date of admission: 04/11/17 17:06 Primary care physician: Maria Dolores Whaley, - Patient Status Disposition: Home, Self-Care Functional capacity at discharge: independent ambulation Overall status at discharge: patient is progressing back to baseline - Discharge Instructions Follow Up With: Maria Dolores Whaley, EXAMINING OFFICER [Primary Care Provider] - Additional Instructions: follow up with your PCP in the next 7-10 days for a follow up visit. Return to the ER as needed for any other problems or concerns or if your symptoms return or worsen. Check your blood sugar as soon as you wake up before you eat or drink anything, then check it at least one other time daily, 2 hours after you eat. Record the results and make sure that you share with your doctor. Watch your carbs, drink more water, and try to exercise daily, increasing as you can tolerate it. Follow up with neurology for EEG and request sleep study when you see your PCP. - Diet and Activity Activity: increase activity as tolerated Diet: diabetic diet, low fat, low cholesterol Hospital course: See assessment and plan for hospital course. - Time Spent with Patient Total time spent providing and/or coordinating discharge services: Less than 30 minutes - Constitutional Vitals: Temp Pulse Resp BP Pulse Ox 98.0 F 67 18 109/74 90 04/12/17 11:34 04/12/17 11:34 04/12/17 11:34 04/12/17 11:34 04/12/17 11:34 General appearance: Present: A&O X 3, pleasant, answers questions appropriately - Head Head exam: Present: atraumatic, normal inspection, normocephalic - Eye Eye exam: Present: normal appearance, conjuntiva pink, sclera anicteric - Neck Neck exam general surgery: Present: normal inspection, supple, trachea midline. Absent: lymphadenopathy, tenderness - Respiratory Respiratory exam: Present: CTAB. Absent: accessory muscle use, rales, rhonchi, wheezes - Cardiovascular Cardiovascular exam: Present: RRR, +S1, +S2. Absent: diastolic murmur, gallop, rubs, systolic murmur - GI/Abdominal GI/Abdominal exam: Present: normal bowel sounds, soft, no peritoneal signs. Absent: distended, hepatomegaly, tenderness - Extremities Exam Extremities exam: Present: normal inspection, warm, radial pulses palpable and symmetrical. Absent: calf tenderness, cyanotic, pedal edema - Neurological Exam Neurological exam: Present: alert, oriented X3, no focal deficits, strengths equal and symetr throughout. Absent: altered, pronater drift, facial droop, speech deficit - Skin Skin exam: Present: dry, intact, normal color, warm. Absent: rash
--- NOTE | 2017-04-17 09:42 | Electrocardiograph Report ---
[place] [address] Test Date: 2017-04-11 Pat Name: Concepcion Ann Department: 104 Room: 3B36 Gender: F Windows Migration Technician: [id number] : 1965 Requested By: Jose Briseno Order Number: [id number] Reading MD: Sherita Cardenas Measurements Intervals [place] Rate: 82 P: 27 [place]: 157 QRS: -8 QRSD: 94 T: 11 QT: 360 QTc: 399 Interpretive Statements SINUS RHYTHM VOLTAGE CRITERIA FOR LVH [MEETS CRITERIA IN ONE OF: R(aVL), S(V1), R(V5), R(V5/V6) +S(V1)] POSSIBLE ANTERIOR MYOCARDIAL INFARCTION [30 ms Q WAVE IN V3/V4, OR R < 0.2 mV IN V4], PROBABLY OLD Electronically Signed On 04-17-2017 9:41:11 EDT by Sherita Cardenas
== END 2017-04-12 14:44 | disposition home or self-care (01) ==
LOC: EMEROO 14:29 → 3BNU 14:29
PROVIDERS: ADMIT Nurse Practitioner Acute Care; ATTEND Registered Nurse

== ENCOUNTER 2019-05-22 10:36 | Inpatient (IN) ==
[~2019-05-22 10:36] MED LIST: Aminoglycoside Consult 1 EACH MC ONE
[2019-05-22] MEDS ORDERED: Clindamycin 600 MG/50 ML 600 MG/50 ML IV.SOLN IVPB ONE (10:57)
[2019-05-22 11:30] LABS: Basophils % 0.3 %; Hematocrit 42.4 % (35.3-44.9); Hemoglobin 14.6 g/dL (11.5-15.4); Immature Granulocytes % 0.3 % (0-4); Lymphocytes # 1.1 K/mcL (0.6-4.6); Lymphocytes % 37.5 %; Mean Corpuscular HGB Conc 34.4 g/dL (31.6-35.5); Mean Corpuscular Hemoglobin 33.9 pg (28.0-33.3); Mean Corpuscular Volume 98.4 fL (83.0-100.0); Mean Platelet Volume 10.6 fL (9.4-12.4); Monocytes # 0.4 K/mcL (0.0-1.3); Neutrophils # 1.4 K/mcL (1.6-8.9); Red Blood Count 4.31 M/mcL (3.82-4.97); Red Cell Distribution Width 14.5 % (11.5-14.5); Segmented Neutrophils % 46.9 %
[2019-05-22 11:32] LABS: Platelet Count 46 K/mcL (140-400)
[2019-05-22] MEDS ORDERED: *HR* FentaNYL (PF) 100 MCG/2 ML VIAL IVP ONE (11:37)
[2019-05-22] MEDS ORDERED: *HR* Promethazine 25 MG/ML VIAL IVP ONE (12:02)
[2019-05-22 12:41] LABS: BUN/Creatinine Ratio 16 (6-26); Blood Urea Nitrogen 8 mg/dL (6-20); Calcium 9.2 mg/dL (8.6-10.3); Carbon Dioxide 25 mEq/L (23-29); Chloride 103 mEq/L (98-107); Glucose 196 mg/dL (70-105); Osmolality,Calculated 290 (280-300); Potassium 3.5 mEq/L (3.5-5.1); Sodium 138 mEq/L (136-145); eGFR For African Americans > 60 (> 60); eGFR For Non-African Americans > 60 (> 60)
[2019-05-22] MEDS ORDERED: *HR* HYDROmorphone (PF) 1 MG/ML SYRINGE IVP ONE (12:49)
[2019-05-22] MEDS ORDERED: Mag Hydrox/Al Hydrox/Simeth 30 ML UDC PO PRN (13:25)
[2019-05-22] MEDS ORDERED: Ondansetron 4 MG/2 ML VIAL IVP PRN (13:25)
[2019-05-22] MEDS ORDERED: Acetaminophen 325 MG TABLET PO PRN (13:25)
[2019-05-22] MEDS ORDERED: MOM Conc 10 ML UD.LIQ PO PRN (13:25)
[2019-05-22] MEDS ORDERED: Naloxone 0.4 MG/ML INJ IVP PRN (13:25)
[2019-05-22] MEDS ORDERED: Dextrose Gel 15 GM/37.5 ML TUBE PO PRN ×2 (13:28)
[2019-05-22] MEDS ORDERED: D5% in Water 1,000 ML IVC PRN (13:28)
[2019-05-22] MEDS ORDERED: *HR* Dextrose 50 % in Water (Syg) 50 ML SYRINGE IVP PRN (13:28)
[2019-05-22 15:14] LABS: Estimated Average Glucose 126 mg/dl
[2019-05-22] MEDS: Insulin LISPRO 300 UNITS/3 ML VIAL SQ SCH ×2 (17:10→21:13)
[2019-05-22] MEDS: *HR* OxyCODONE Immed Rel 5 MG TABLET PO PRN ×2 (17:36→23:59)
[2019-05-22] MEDS: Cefepime HCl 1,000 MG in Water for inj. (sterile) 10 ML IVP SCH (17:37)
[2019-05-22] MEDS ORDERED: NON-FORMULARY MEDICATION 1 EACH EACH (Pregabalin [Lyrica] 200 MG) PO SCH (21:00)
[2019-05-22] MEDS: traZODone 50 MG TABLET PO SCH (21:22)
[2019-05-22] MEDS: Pregabalin 50 MG CAPSULE PO SCH (21:22)
[2019-05-22] MEDS: tiZANidine 4 MG TABLET PO SCH (21:23)
[2019-05-23] MEDS: Cefepime HCl 1,000 MG in Water for inj. (sterile) 10 ML IVP SCH ×3 (01:20→16:11)
[2019-05-23 05:57] LABS: Hematocrit 37.8 % (35.3-44.9); Hemoglobin 12.9 g/dL (11.5-15.4); Mean Corpuscular HGB Conc 34.1 g/dL (31.6-35.5); Mean Corpuscular Hemoglobin 33.3 pg (28.0-33.3); Mean Corpuscular Volume 97.7 fL (83.0-100.0); Mean Platelet Volume 9.5 fL (9.4-12.4); Red Blood Count 3.87 M/mcL (3.82-4.97); Red Cell Distribution Width 14.6 % (11.5-14.5); White Blood Count 2.5 K/mcL (4.3-11.1)
[2019-05-23] MEDS ORDERED: *HR* Enoxaparin 40 MG/0.4 ML SYRINGE SQ SCH (06:00)
[2019-05-23 06:02] LABS: Platelet Count 44 K/mcL (140-400)
[2019-05-23] MEDS: *HR* OxyCODONE Immed Rel 5 MG TABLET PO PRN ×4 (06:09→22:35)
[2019-05-23 06:16] LABS: BUN/Creatinine Ratio 17 (6-26); Blood Urea Nitrogen 7 mg/dL (6-20); Calcium 8.5 mg/dL (8.6-10.3); Carbon Dioxide 29 mEq/L (23-29); Chloride 105 mEq/L (98-107); Glucose 107 mg/dL (70-105); Magnesium 1.9 mg/dL (1.6-2.6); Osmolality,Calculated 290 (280-300); Phosphorous 3.9 mg/dL (2.7-4.5); Potassium 3.4 mEq/L (3.5-5.1); Sodium 141 mEq/L (136-145); eGFR For African Americans > 60 (> 60); eGFR For Non-African Americans > 60 (> 60)
[2019-05-23] MEDS: Metoprolol XL (24 HR) Succ 50 MG TAB.ER.24H PO SCH (09:04)
[2019-05-23] MEDS: Pregabalin 50 MG CAPSULE PO SCH ×2 (09:04→21:52)
[2019-05-23] MEDS: Insulin LISPRO 300 UNITS/3 ML VIAL SQ SCH ×4 (09:05→21:55)
[2019-05-23] MEDS: Loratadine 10 MG TABLET PO SCH (09:05)
[2019-05-23] MEDS: *HR* SitaGLIPtin 100 MG TABLET PO SCH (09:09)
[2019-05-23] MEDS ORDERED: Isovue-370 500 ML BOTTLE IVP ONE (11:05)
[2019-05-23] MEDS: Nystatin Cream 15 GM TUBE TP SCH ×2 (16:12→21:55)
[2019-05-23] MEDS: tiZANidine 4 MG TABLET PO SCH (21:50)
[2019-05-23] MEDS: traZODone 50 MG TABLET PO SCH (21:52)
[2019-05-24] MEDS: Cefepime HCl 1,000 MG in Water for inj. (sterile) 10 ML IVP SCH ×4 (01:01→23:01)
[2019-05-24] MEDS: *HR* OxyCODONE Immed Rel 5 MG TABLET PO PRN ×5 (03:50→23:00)
[2019-05-24 04:15] LABS: Eosinophils % 1.4 %; Monocytes # 0.5 K/mcL (0.0-1.3); Monocytes % 16.2 %; White Blood Count 2.8 K/mcL (4.3-11.1)
[2019-05-24 04:17] LABS: Basophils % 0.7 %; Hematocrit 38.3 % (35.3-44.9); Hemoglobin 13.1 g/dL (11.5-15.4); Immature Granulocytes % 1.8 % (0-4); Lymphocytes % 44.4 %; Mean Corpuscular HGB Conc 34.2 g/dL (31.6-35.5); Mean Corpuscular Hemoglobin 33.2 pg (28.0-33.3); Mean Platelet Volume 9.9 fL (9.4-12.4); Red Blood Count 3.95 M/mcL (3.82-4.97); Red Cell Distribution Width 14.4 % (11.5-14.5); Segmented Neutrophils % 35.5 %
[2019-05-24 04:27] LABS: Lymphocytes # 1.2 K/mcL (0.6-4.6); Platelet Count 49 K/mcL (140-400)
[2019-05-24 04:28] LABS: BUN/Creatinine Ratio 14 (6-26); Blood Urea Nitrogen 6 mg/dL (6-20); Calcium 8.9 mg/dL (8.6-10.3); Carbon Dioxide 29 mEq/L (23-29); Chloride 102 mEq/L (98-107); Glucose 113 mg/dL (70-105); Osmolality,Calculated 284 (280-300); Potassium 3.6 mEq/L (3.5-5.1); Sodium 138 mEq/L (136-145); eGFR For African Americans > 60 (> 60); eGFR For Non-African Americans > 60 (> 60)
[2019-05-24] MEDS: Insulin LISPRO 300 UNITS/3 ML VIAL SQ SCH ×4 (07:14→20:32)
[2019-05-24] MEDS: Nystatin Cream 15 GM TUBE TP SCH ×3 (08:15→20:29)
[2019-05-24] MEDS: Pregabalin 50 MG CAPSULE PO SCH ×2 (08:16→20:29)
[2019-05-24] MEDS: *HR* SitaGLIPtin 100 MG TABLET PO SCH (08:17)
[2019-05-24] MEDS: Metoprolol XL (24 HR) Succ 50 MG TAB.ER.24H PO SCH (08:17)
[2019-05-24] MEDS: Loratadine 10 MG TABLET PO SCH (08:17)
[2019-05-24] MEDS: tiZANidine 4 MG TABLET PO SCH (20:28)
[2019-05-24] MEDS: traZODone 50 MG TABLET PO SCH (20:29)
[2019-05-25] MEDS: *HR* OxyCODONE Immed Rel 5 MG TABLET PO PRN ×5 (03:31→21:06)
[2019-05-25 04:29] LABS: BUN/Creatinine Ratio 14 (6-26); Blood Urea Nitrogen 7 mg/dL (6-20); Calcium 8.8 mg/dL (8.6-10.3); Carbon Dioxide 31 mEq/L (23-29); Chloride 102 mEq/L (98-107); Glucose 105 mg/dL (70-105); Osmolality,Calculated 284 (280-300); Potassium 4.2 mEq/L (3.5-5.1); Sodium 138 mEq/L (136-145); eGFR For African Americans > 60 (> 60); eGFR For Non-African Americans > 60 (> 60)
[2019-05-25] MEDS: Insulin LISPRO 300 UNITS/3 ML VIAL SQ SCH ×4 (07:51→21:14)
[2019-05-25] MEDS: Cefepime HCl 1,000 MG in Water for inj. (sterile) 10 ML IVP SCH (08:03)
[2019-05-25] MEDS: *HR* SitaGLIPtin 100 MG TABLET PO SCH (08:04)
[2019-05-25] MEDS: Metoprolol XL (24 HR) Succ 50 MG TAB.ER.24H PO SCH (08:04)
[2019-05-25] MEDS: Loratadine 10 MG TABLET PO SCH (08:05)
[2019-05-25] MEDS: Pregabalin 50 MG CAPSULE PO SCH ×2 (08:05→21:05)
[2019-05-25] MEDS: Nystatin Cream 15 GM TUBE TP SCH ×3 (08:08→21:14)
[2019-05-25] MEDS: traZODone 50 MG TABLET PO SCH (21:05)
[2019-05-25] MEDS: tiZANidine 4 MG TABLET PO SCH (21:05)
[2019-05-26] MEDS: *HR* OxyCODONE Immed Rel 5 MG TABLET PO PRN ×2 (02:45→13:16)
[2019-05-26 03:35] LABS: Basophils % 0.9 %; Hemoglobin 13.2 g/dL (11.5-15.4); Mean Corpuscular Volume 98.2 fL (83.0-100.0)
[2019-05-26 03:37] LABS: Eosinophils % 0.9 %; Hematocrit 38.7 % (35.3-44.9); Immature Granulocytes % 4.4 % (0-4); Immature Platelets 4.2 % (1.1-6.1); Lymphocytes # 1.6 K/mcL (0.6-4.6); Lymphocytes % 51.1 %; Mean Corpuscular HGB Conc 34.1 g/dL (31.6-35.5); Mean Corpuscular Hemoglobin 33.5 pg (28.0-33.3); Mean Platelet Volume 10.1 fL (9.4-12.4); Monocytes # 0.4 K/mcL (0.0-1.3); Monocytes % 11.8 %; Platelet Count 63 K/mcL (140-400); Red Blood Count 3.94 M/mcL (3.82-4.97); Red Cell Distribution Width 14.3 % (11.5-14.5); Segmented Neutrophils % 30.9 %; White Blood Count 3.2 K/mcL (4.3-11.1)
[2019-05-26 03:51] LABS: BUN/Creatinine Ratio 16 (6-26); Blood Urea Nitrogen 9 mg/dL (6-20); Calcium 8.7 mg/dL (8.6-10.3); Carbon Dioxide 32 mEq/L (23-29); Chloride 101 mEq/L (98-107); Glucose 123 mg/dL (70-105); Osmolality,Calculated 288 (280-300); Potassium 3.9 mEq/L (3.5-5.1); Sodium 139 mEq/L (136-145); eGFR For African Americans > 60 (> 60); eGFR For Non-African Americans > 60 (> 60)
[2019-05-26 03:55] LABS: Platelet Estimate Decreased (Normal)
[2019-05-26 03:56] LABS: Reactive Lymphocytes Present (Not Present)
[2019-05-26] MEDS: Loratadine 10 MG TABLET PO SCH (08:58)
[2019-05-26] MEDS: Pregabalin 50 MG CAPSULE PO SCH (08:58)
[2019-05-26] MEDS: Metoprolol XL (24 HR) Succ 50 MG TAB.ER.24H PO SCH (08:58)
[2019-05-26] MEDS: Insulin LISPRO 300 UNITS/3 ML VIAL SQ SCH ×2 (08:59→12:08)
[2019-05-26] MEDS: Nystatin Cream 15 GM TUBE TP SCH (09:05)
[2019-05-26] MEDS: *HR* SitaGLIPtin 100 MG TABLET PO SCH (09:05)
[2019-05-26 13:32] VITALS: BP 114/72
== END 2019-05-26 15:31 | disposition home or self-care (01) | DRG 603 ==
LOC: EMEROOARM 10:36 → 3ANU 10:36 → SUATTDRO 17:51
PROVIDERS: ADMIT Internal Medicine; ATTEND Internal Medicine

== ENCOUNTER 2019-10-26 01:08 | Inpatient (IN) ==
[2019-10-26] MEDS ORDERED: Ondansetron 4 MG/2 ML VIAL IM ONE (01:22)
[2019-10-26] MEDS ORDERED: *HR* HYDROmorphone (PF) 1 MG/ML SYRINGE IVP ONE (01:22)
[2019-10-26 02:19] LABS: Basophils % 0.2 %; Hemoglobin 12.4 g/dL (11.5-15.4); Mean Corpuscular Volume 96.8 fL (83.0-100.0); Mean Platelet Volume 9.9 fL (9.4-12.4); Nucleated Red Blood Cells 0.4 /100 WBC (0); Red Cell Distribution Width 14.7 % (11.5-14.5)
[2019-10-26 02:21] LABS: Hematocrit 36.4 % (35.3-44.9); Immature Granulocytes % 1.1 % (0-4); Immature Platelets 3.9 % (1.1-6.1); Lymphocytes # 0.4 K/mcL (0.6-4.6); Lymphocytes % 6.5 %; Mean Corpuscular HGB Conc 34.1 g/dL (31.6-35.5); Monocytes # 0.6 K/mcL (0.0-1.3); Monocytes % 10.1 %; Neutrophils # 4.6 K/mcL (1.6-8.9); Red Blood Count 3.76 M/mcL (3.82-4.97); Segmented Neutrophils % 82.1 %; White Blood Count 5.6 K/mcL (4.3-11.1)
[2019-10-26 02:31] LABS: Platelet Count 44 K/mcL (140-400)
[2019-10-26 02:33] LABS: INR 1.4; Prothrombin Time 15.8 Seconds (9.4-12.1)
[2019-10-26 02:36] LABS: Activated Partial Thrombo Time 31.4 Seconds (26.0-36.0)
[2019-10-26 02:44] LABS: Alanine Aminotransferase 37 Units/L (7-52); Albumin 2.9 g/dL (3.5-5.7); Albumin/Globulin Ratio 0.7 (1.1-2.2); Alkaline Phosphatase 41 Units/L (34-104); Aspartate Amino Transferase 55 Units/L (13-39); BUN/Creatinine Ratio 23 (6-26); Bilirubin,Total 2.2 mg/dL (0.3-1.0); Blood Urea Nitrogen 11 mg/dL (6-20); Calcium 8.3 mg/dL (8.6-10.3); Carbon Dioxide 25 mEq/L (23-29); Chloride 98 mEq/L (98-107); Glucose 143 mg/dL (70-105); Osmolality,Calculated 276 (280-300); Potassium 3.4 mEq/L (3.5-5.1); Sodium 132 mEq/L (136-145); Total Protein 6.9 g/dL (6.4-8.9); Troponin I < 0.03 ng/mL (< 0.04); eGFR For African Americans > 60 (> 60); eGFR For Non-African Americans > 60 (> 60)
[2019-10-26] MEDS ORDERED: *HR* FentaNYL (PF) 100 MCG/2 ML VIAL IVP ONE (02:48)
[2019-10-26 03:00] LABS: Bilirubin,Urine Small (Negative); Blood,Urine Negative (Negative); Clarity,Urine Clear (Clear); Glucose,Urine (UA) Normal (Normal); Ketones,Urine Trace mg/dL (Negative); Leukocyte Esterase,Urine Trace (Negative); Nitrite,Urine Negative (Negative); PH,Urine 5.5 pH Units (5.0-8.0); Protein,Urine 30 mg/dL (Neg-Trace)
[2019-10-26 03:04] LABS: Color,Urine Dark Yellow (Yellow)
[2019-10-26 03:08] LABS: Amphetamine Screen,Urine Negative ng/mL (Cutoff=1000); Barbiturate Screen,Urine Negative ng/mL (Cutoff=200); Benzodiazepines Screen,Urine Negative ng/mL (Cutoff=200); Cannabinoid Screen,Urine Positive ng/mL (Cutoff = 50); Cocaine Screen,Urine Negative ng/mL (Cutoff= 300); Opiate Screen,Urine Positive ng/mL (Cutoff=300); Phencyclidine Screen,Urine Negative ng/mL (Cutoff=25)
[2019-10-26 03:18] LABS: Squamous Epithelial Cell,Urine Moderate per lpf (None-Few); WBC,Urine 0-3 per hpf (0-3)
[2019-10-26 03:19] LABS: Bacteria,Urine Few per hpf (None-Few); Mucus,Urine Many per lpf (Few)
[2019-10-26] MEDS ORDERED: Piperacillin/Tazobactam 3.375 GM in 0.9 % Sodium Chloride Mini Bag 100 ML IVPB ONE (03:28)
[2019-10-26] MEDS ORDERED: Naloxone 0.4 MG/ML INJ IVP PRN (03:56)
[2019-10-26] MEDS ORDERED: Ondansetron 4 MG/2 ML VIAL IVP PRN (03:56)
[2019-10-26] MEDS ORDERED: Ringers Solution, Lactated 1,000 ML IVC SCH (04:00)
[2019-10-26] MEDS ORDERED: 0.9 % Sodium Chloride 250 ML IVC SCH (04:15)
[2019-10-26] MEDS ORDERED: Dexamethasone 10 MG/ML VIAL IVP ONE (04:23)
[2019-10-26] MEDS ORDERED: Gadolinium Contrast Agent (WT Based) IV PRN (04:28)
[2019-10-26] MEDS ORDERED: *HR* Dextrose 50 % in Water (Syg) 50 ML SYRINGE IVP PRN (04:41)
[2019-10-26] MEDS ORDERED: D5% in Water 1,000 ML IVC PRN (04:41)
[2019-10-26] MEDS ORDERED: Dextrose Gel 15 GM/37.5 ML TUBE PO PRN ×2 (04:41)
[2019-10-26] MEDS ORDERED: Ringers Solution, Lactated 1,000 ML IVC ONE (05:35)
[2019-10-26] MEDS ORDERED: Ringers Solution, Lactated 500 ML IVC ONE (05:43)
[2019-10-26] MEDS: D5 IVPB SCH ×3 (06:16→21:42)
[2019-10-26] MEDS: WATER IVPB SCH ×3 (06:16→21:42)
[2019-10-26] MEDS: ACYCLOVIR IVPB SCH ×3 (06:16→21:42)
[2019-10-26] MEDS ORDERED: Ampicillin 2 GM in 0.9 % Sodium Chloride Mini Bag 100 ML IVPB SCH (08:00)
[2019-10-26] MEDS ORDERED: 0.9 % Sodium Chloride 1,000 ML IVC SCH (09:00)
[2019-10-26 09:44] LABS: Red Blood Cell,CSF 0.136 M/mcL
[2019-10-26 09:52] LABS: Appearance,CSF Bloody (Clear)
[2019-10-26] MEDS: Insulin LISPRO 300 UNITS/3 ML VIAL SQ SCH ×4 (10:00→20:54)
[2019-10-26] MEDS ORDERED: Vancomycin 2,000 MG/520 ML IV.SOLN IVPB ONE (10:00)
[2019-10-26] MEDS: cefTRIAXone 2,000 MG in Water for inj. (sterile) 20 ML IVP SCH ×2 (10:01→18:23)
[2019-10-26 10:21] LABS: Glucose,CSF 91 mg/dL (40-70); Total Protein,CSF > 200 mg/dL (15-45)
[2019-10-26 10:25] LABS: Basophils,CSF 0 %; Eosinophils,CSF 0 %; Monocytes,CSF 0 %
[2019-10-26] MEDS: Ringers Solution, Lactated 1,000 ML IVC SCH (10:44)
[2019-10-26] MEDS: Dexamethasone 4 MG/ML VIAL IVP SCH ×3 (11:24→23:33)
[2019-10-26] MEDS ORDERED: Acetaminophen/Butalbital/CaffeineTABLET PO ONE (11:50)
[2019-10-26] MEDS: Ketorolac 15 MG/ML VIAL IVP PRN (12:31)
[2019-10-26] MEDS: Lactulose Oral Soln 20 GM/30 ML UDC PO SCH ×2 (14:12→20:54)
[2019-10-26 17:39] LABS: Acinetobacter baumannii by PCR Not Detected (Not Detect); Candida albicans by PCR Not Detected (Not Detect); Candida glabrata by PCR Not Detected (Not Detect); Candida krusei by PCR Not Detected (Not Detect); Candida parapsilosis by PCR Not Detected (Not Detect); Candida tropicalis by PCR Not Detected (Not Detect); Enterobacter cloacae Cmplx PCR Not Detected (Not Detect); Enterobacteriaceae by PCR Not Detected (Not Detect); Enterococcus by PCR Not Detected (Not Detect); Escherichia coli by PCR Not Detected (Not Detect); Klebsiella oxytoca by PCR Not Detected (Not Detect); Klebsiella pneumoniae by PCR Not Detected (Not Detect); Proteus by PCR Not Detected (Not Detect); Pseudomonas aeruginosa by PCR Not Detected (Not Detect); Serratia marcescens by PCR Not Detected (Not Detect); Staphylococcus aureus by PCR Not Detected (Not Detect); Staphylococcus by PCR Not Detected (Not Detect); Streptococcus agalactiae(B)PCR Not Detected (Not Detect); Streptococcus by PCR DETECTED (Not Detect); Streptococcus pneumoniae PCR Not Detected (Not Detect); Streptococcus pyogenes (A) PCR Not Detected (Not Detect)
[2019-10-26] MEDS: Insulin DETEMIR 100 UNIT/ML X5UNITS SQ SCH (21:43)
[2019-10-26] MEDS: Vancomycin 1,750 MG/517.5 ML IV.SOLN IVPB SCH (23:29)
[2019-10-27] MEDS: Ringers Solution, Lactated 1,000 ML IVC SCH ×2 (01:10→01:11)
[2019-10-27] MEDS: ACYCLOVIR IVPB SCH ×3 (04:24→19:55)
[2019-10-27] MEDS: D5 IVPB SCH ×3 (04:24→19:55)
[2019-10-27] MEDS: WATER IVPB SCH ×3 (04:24→19:55)
[2019-10-27] MEDS: Dexamethasone 4 MG/ML VIAL IVP SCH (04:25)
[2019-10-27 04:55] LABS: Basophils % 0.3 %; Immature Granulocytes % 0.8 % (0-4); Mean Corpuscular HGB Conc 33.9 g/dL (31.6-35.5); Mean Corpuscular Hemoglobin 32.7 pg (28.0-33.3); Mean Corpuscular Volume 96.4 fL (83.0-100.0); Red Cell Distribution Width 14.7 % (11.5-14.5)
[2019-10-27 04:57] LABS: Hematocrit 37.8 % (35.3-44.9); Hemoglobin 12.8 g/dL (11.5-15.4); Immature Platelets 5.5 % (1.1-6.1); Lymphocytes # 0.7 K/mcL (0.6-4.6); Lymphocytes % 18.6 %; Mean Platelet Volume 10.8 fL (9.4-12.4); Monocytes # 0.3 K/mcL (0.0-1.3); Monocytes % 8.5 %; Neutrophils # 2.8 K/mcL (1.6-8.9); Red Blood Count 3.92 M/mcL (3.82-4.97); Segmented Neutrophils % 71.8 %; White Blood Count 3.9 K/mcL (4.3-11.1)
[2019-10-27 05:03] LABS: Alanine Aminotransferase 40 Units/L (7-52); Albumin 2.8 g/dL (3.5-5.7); Albumin/Globulin Ratio 0.7 (1.1-2.2); Alkaline Phosphatase 36 Units/L (34-104); Aspartate Amino Transferase 64 Units/L (13-39); BUN/Creatinine Ratio 42 (6-26); Blood Urea Nitrogen 15 mg/dL (6-20); Calcium 8.3 mg/dL (8.6-10.3); Carbon Dioxide 28 mEq/L (23-29); Chloride 105 mEq/L (98-107); Glucose 139 mg/dL (70-105); Osmolality,Calculated 289 (280-300); Potassium 3.6 mEq/L (3.5-5.1); Sodium 138 mEq/L (136-145); Total Protein 6.8 g/dL (6.4-8.9); eGFR For African Americans > 60 (> 60); eGFR For Non-African Americans > 60 (> 60)
[2019-10-27 05:04] LABS: Platelet Count 38 K/mcL (140-400)
[2019-10-27] MEDS: cefTRIAXone 2,000 MG in Water for inj. (sterile) 20 ML IVP SCH (05:56)
[2019-10-27] MEDS: *HR* Enoxaparin 40 MG/0.4 ML SYRINGE SQ SCH (05:59)
[2019-10-27] MEDS: Ketorolac 15 MG/ML VIAL IVP PRN (08:22)
[2019-10-27] MEDS: Vancomycin 1,750 MG/517.5 ML IV.SOLN IVPB SCH (08:22)
[2019-10-27] MEDS: Lactulose Oral Soln 20 GM/30 ML UDC PO SCH ×4 (08:22→19:50)
[2019-10-27] MEDS: Insulin LISPRO 300 UNITS/3 ML VIAL SQ SCH ×4 (08:23→19:50)
[2019-10-27] MEDS ORDERED: Aminoglycoside Consult 1 EACH MC ONE (08:42)
[2019-10-27] MEDS: Pregabalin 50 MG CAPSULE PO SCH ×2 (09:20→19:50)
[2019-10-27] MEDS: Insulin DETEMIR 100 UNIT/ML X5UNITS SQ SCH (19:50)
[2019-10-28 04:18] LABS: Basophils % 0.2 %; Hemoglobin 11.7 g/dL (11.5-15.4); Immature Granulocytes % 1.4 % (0-4); Red Cell Distribution Width 14.6 % (11.5-14.5)
[2019-10-28 04:20] LABS: Hematocrit 34.7 % (35.3-44.9); Immature Platelets 4.8 % (1.1-6.1); Lymphocytes # 1.2 K/mcL (0.6-4.6); Lymphocytes % 27.4 %; Mean Corpuscular HGB Conc 33.7 g/dL (31.6-35.5); Mean Corpuscular Volume 97.7 fL (83.0-100.0); Mean Platelet Volume 10.2 fL (9.4-12.4); Monocytes # 0.5 K/mcL (0.0-1.3); Monocytes % 11.9 %; Neutrophils # 2.6 K/mcL (1.6-8.9); Red Blood Count 3.55 M/mcL (3.82-4.97); Segmented Neutrophils % 59.1 %; White Blood Count 4.4 K/mcL (4.3-11.1)
[2019-10-28 04:25] LABS: Platelet Count 46 K/mcL (140-400)
[2019-10-28 04:34] LABS: BUN/Creatinine Ratio 33 (6-26); Blood Urea Nitrogen 16 mg/dL (6-20); Calcium 7.8 mg/dL (8.6-10.3); Carbon Dioxide 30 mEq/L (23-29); Chloride 103 mEq/L (98-107); Glucose 109 mg/dL (70-105); Osmolality,Calculated 286 (280-300); Potassium 2.9 mEq/L (3.5-5.1); Sodium 137 mEq/L (136-145); eGFR For African Americans > 60 (> 60); eGFR For Non-African Americans > 60 (> 60)
[2019-10-28] MEDS: D5 IVPB SCH ×3 (04:38→20:27)
[2019-10-28] MEDS: ACYCLOVIR IVPB SCH ×3 (04:38→20:27)
[2019-10-28] MEDS: WATER IVPB SCH ×3 (04:38→20:27)
[2019-10-28] MEDS: *HR* Enoxaparin 40 MG/0.4 ML SYRINGE SQ SCH (05:57)
[2019-10-28 07:43] LABS: Magnesium 1.9 mg/dL (1.6-2.6)
[2019-10-28] MEDS: cefTRIAXone 2,000 MG in Water for inj. (sterile) 20 ML IVP SCH (08:47)
[2019-10-28] MEDS: Pregabalin 50 MG CAPSULE PO SCH ×2 (08:47→20:26)
[2019-10-28] MEDS: Lactulose Oral Soln 20 GM/30 ML UDC PO SCH ×2 (08:47→20:26)
[2019-10-28] MEDS: Insulin LISPRO 300 UNITS/3 ML VIAL SQ SCH ×4 (08:48→20:26)
[2019-10-28] MEDS: Insulin DETEMIR 100 UNIT/ML X5UNITS SQ SCH (20:27)
[2019-10-28] MEDS ORDERED: Melatonin 3 MG TABLET PO ONE (22:20)
[2019-10-29 04:46] LABS: Hemoglobin 12.5 g/dL (11.5-15.4); Red Cell Distribution Width 14.6 % (11.5-14.5)
[2019-10-29 04:48] LABS: Hematocrit 36.5 % (35.3-44.9); Immature Platelets 3.8 % (1.1-6.1); Mean Corpuscular HGB Conc 34.2 g/dL (31.6-35.5); Mean Corpuscular Hemoglobin 33.6 pg (28.0-33.3); Mean Corpuscular Volume 98.1 fL (83.0-100.0); Mean Platelet Volume 10.4 fL (9.4-12.4); Red Blood Count 3.72 M/mcL (3.82-4.97); White Blood Count 4.7 K/mcL (4.3-11.1)
[2019-10-29 04:58] LABS: Platelet Count 55 K/mcL (140-400)
[2019-10-29 05:14] LABS: BUN/Creatinine Ratio 26 (6-26); Blood Urea Nitrogen 14 mg/dL (6-20); Carbon Dioxide 29 mEq/L (23-29); Chloride 104 mEq/L (98-107); Glucose 91 mg/dL (70-105); Osmolality,Calculated 284 (280-300); Potassium 3.7 mEq/L (3.5-5.1); Sodium 137 mEq/L (136-145); eGFR For African Americans > 60 (> 60); eGFR For Non-African Americans > 60 (> 60)
[2019-10-29 05:28] LABS: Lymphocytes # 0.9 K/mcL (0.6-4.6); Monocytes # 0.5 K/mcL (0.0-1.3); Neutrophils # 2.8 K/mcL (1.6-8.9); Platelet Estimate Marked Decrease (Normal); Reactive Lymphocytes Present (Not Present); Smudge Cells Present (Not Present); Toxic Granulation Present (Not Present)
[2019-10-29] MEDS: *HR* Enoxaparin 40 MG/0.4 ML SYRINGE SQ SCH (05:35)
[2019-10-29] MEDS: D5 IVPB SCH (05:38)
[2019-10-29] MEDS: ACYCLOVIR IVPB SCH (05:38)
[2019-10-29] MEDS: WATER IVPB SCH (05:38)
[2019-10-29 07:06] VITALS: BP 122/78
[2019-10-29] MEDS: cefTRIAXone 2,000 MG in Water for inj. (sterile) 20 ML IVP SCH (07:53)
[2019-10-29] MEDS: Insulin LISPRO 300 UNITS/3 ML VIAL SQ SCH (07:54)
[2019-10-29] MEDS: Pregabalin 50 MG CAPSULE PO SCH (07:54)
[2019-10-29] MEDS: Lactulose Oral Soln 20 GM/30 ML UDC PO SCH (07:54)
[2019-10-29 14:03] LABS: HSV Source CSF
== END 2019-10-29 12:31 | disposition home health service (06) | DRG 871 ==
LOC: EMEROOARM 01:08 → 3BNU 01:08 → 2ANU 01:08 → SUATTDRO 10-27 13:59
PROVIDERS: ADMIT Student in an Organized Health Care Education/Training Program; ATTEND Internal Medicine